=== PATIENT | female | born 1950 | race Caucasian/White ===

== ENCOUNTER 2023-03-11 07:52 | Inpatient (IN) | payer OTHER, MEDICARE ==
[2023-03-04 14:35] VITALS: BMI 21.6
[2023-03-11] MEDS ORDERED: CEFAZOLIN 2 GM in DEXTROSE 5%-WATER - 50 ML IVPB ONE (08:51)
[2023-03-11] MEDS ORDERED: oxyCODONE HCL 5 MG TABLET PO PRN ×2 (09:59)
[2023-03-11] MEDS ORDERED: MAG HYDROX/AL HYDROX/SIMETH 30 ML UNIT-DOSE CUP PO PRN (09:59)
[2023-03-11] MEDS ORDERED: MAGNESIUM HYDROX 2400MG/30ML ORAL SUSPENSION 30 ML CUP PO PRN (09:59)
[2023-03-11] MEDS ORDERED: ONDANSETRON 4 MG/2 ML VIAL IVPUSH PRN (09:59)
[2023-03-11] MEDS ORDERED: CELECOXIB 200 MG CAPSULE PO ONE (10:00)
[2023-03-11] MEDS ORDERED: TRANEXAMIC ACID 1000 MG/10 ML VIAL IVPUSH ONE (10:00)
[2023-03-11] MEDS ORDERED: BUPIVACAINE HCL/PF 0.5% (5 MG/ML) 30 ML VIAL IJ ONE (10:02)
[2023-03-11] MEDS ORDERED: ACETAMINOPHEN INJECTION 100 ML IVPB ONE (10:02)
[2023-03-11] MEDS ORDERED: BUPIVACAINE LIPOSOME/PF (EXPAREL) 266 MG/20 ML VIAL ONE (10:02)
[2023-03-11] MEDS ORDERED: MIDAZOLAM HCL 2 MG/2 ML SINGLE DOSE VIAL ONE (10:02)
[2023-03-11] MEDS ORDERED: ERGOCALCIFEROL (VIT D2) 50,000 UNIT (1.25 MG) CAPSULE PO SCH (10:15)
[2023-03-11] MEDS ORDERED: FLUTICASONE/SALMETEROL 100 MCG/50 MCG DISKUS IH SCH (10:15)
[2023-03-11] MEDS ORDERED: ceFAZolin SODIUM 1 GM VIAL ONE (10:23)
[2023-03-11] MEDS ORDERED: PROPOFOL 40 ML ONE (10:23)
[2023-03-11] MEDS ORDERED: DEXAMETHASONE SOD PHOSPHATE 4 MG/1 ML VIAL ONE (11:12)
[2023-03-11] MEDS ORDERED: ONDANSETRON 4 MG/2 ML VIAL ONE (11:13)
[2023-03-11] MEDS ORDERED: PROPOFOL 20 ML ONE (11:52)
[2023-03-11] MEDS ORDERED: TRANEXAMIC ACID 1000 MG/10 ML VIAL ONE (11:54)
[2023-03-11] MEDS ORDERED: ACETAMINOPHEN 325 MG TABLET (FP) PO PRN (13:02)
[2023-03-11] MEDS ORDERED: LACTATED RINGERS SOLUTION 1,000 ML IV SCH (13:15)
[2023-03-11] MEDS: CELECOXIB 100 MG CAPSULE PO SCH ×2 (18:37→21:55)
[2023-03-11] MEDS: SENNOSIDES/DOCUSATE COMBO (SENNA PLUS) TABLET (UD) PO SCH ×2 (18:37→21:55)
[2023-03-11] MEDS: SODIUM CHLORIDE 1,000 ML IV SCH (18:37)
[2023-03-11] MEDS: FAMOTIDINE 20 MG TABLET PO SCH ×2 (18:37→21:55)
[2023-03-11] MEDS: MULTIVITAMINS (DAILY MVI) TABLET (FP) PO SCH (18:38)
[2023-03-11] MEDS: CEFAZOLIN SODIUM 2 GM in DEXTROSE 5%-WATER 100 ML IVPB SCH (18:48)
[2023-03-11] MEDS: ACETAMINOPHEN 1000 MG/100 ML BAG IVPB SCH (21:53)
[2023-03-11] MEDS: ASPIRIN 81 MG CHEWABLE TABLETS PO SCH (21:55)
[2023-03-11] MEDS ORDERED: PATIENT'S OWN MEDICATION (NON-FORMULARY) (Cyclosporine [Restasis] 1 EACH Droperette) OU SCH (22:00)
[2023-03-12] MEDS: CEFAZOLIN SODIUM 2 GM in DEXTROSE 5%-WATER 100 ML IVPB SCH (02:36)
[2023-03-12 03:09] VITALS: RESP 18
[2023-03-12] MEDS: ACETAMINOPHEN 1000 MG/100 ML BAG IVPB SCH ×2 (06:14→16:41)
[2023-03-12] MEDS: CELECOXIB 100 MG CAPSULE PO SCH (09:42)
[2023-03-12] MEDS: MULTIVITAMINS (DAILY MVI) TABLET (FP) PO SCH (09:43)
[2023-03-12] MEDS: FAMOTIDINE 20 MG TABLET PO SCH (09:43)
[2023-03-12] MEDS: ASPIRIN 81 MG CHEWABLE TABLETS PO SCH (09:43)
[2023-03-12] MEDS: SENNOSIDES/DOCUSATE COMBO (SENNA PLUS) TABLET (UD) PO SCH (09:43)
[2023-03-12] MEDS ORDERED: DEXAMETHASONE 4 MG TABLET (FP) PO ONE (10:00)
[2023-03-12] MEDS ORDERED: HYDROCHLOROTHIAZIDE 12.5 MG CAPSULE (FP) PO SCH (10:00)
[2023-03-12] MEDS ORDERED: PANTOPRAZOLE 20 MG TABLET PO SCH (10:00)
[2023-03-12] MEDS: SODIUM CHLORIDE 1,000 ML IV SCH (11:19)
[2023-03-12 14:22] VITALS: BP 120/66; PULSE 85; TEMP 99.1
== END 2023-03-12 15:10 | disposition home or self-care (01) | DRG 470 ==
LOC: FM/S 07:52
PROVIDERS: ADMIT Orthopaedic Surgery; ATTEND Orthopaedic Surgery
PROC: 0SRD069 Replacement of Left Knee Joint with Oxidized Zirconium on Polyethylene Synthetic Substitute, Cemented, Open Approach (ICD-10-PCS; principal; 2023-03-11 11:18)
DX: M17.12 Unilateral primary osteoarthritis, left knee (principal)
CPT/HCPCS: 73560-TC-LT-FY; 94760; 97010-GP; 97116-GP; 97162-GP; C1776; C1889